=== PATIENT | male | born 1995 | race Caucasian/White ===

== ENCOUNTER 2016-06-10 14:29 | Outpatient (CLI) | payer BC, OTHER ==
[2016-02-28 14:03] VITALS: O2SAT 99
== END 2016-06-10 14:30 | disposition home or self-care (01) | DRG 561 ==
LOC: CONVCARE 14:29
PROVIDERS: ATTEND Orthopaedic Surgery
DX: S62.633D Displaced fracture of distal phalanx of left middle finger, subsequent encounter for fracture with routine healing (principal)
CPT/HCPCS: 73140

== ENCOUNTER 2017-01-15 18:43 | Emergency (ER) | payer OTHER ==
[2017-01-15 19:30] LABS: BASOPHILS % (AUTO) 1 % (0-3); EOSINOPHILS % (AUTO) 1 % (0-9); HEMATOCRIT 44 % (39-53); MEAN CORPUSCULAR HGB CONC 35.8 gm/dl (32.0-36.0); MEAN CORPUSCULAR VOLUME 86 fL (80-100); MONOCYTES % (AUTO) 4.8 % (0-12); NEUTROPHILS % (AUTO) 76.1 % (37-80)
[2017-01-15 19:39] LABS: ALBUMIN 4.7 gm/dl (3.4-5.0); CALCIUM 9.1 mg/dl (8.5-10.1); POTASSIUM 3.4 mMol/L (3.5-5.1)
[2017-01-15 20:10] VITALS: TEMP 100.4
[2017-01-15 21:40] VITALS: BP 123/72; PULSE 61; RESP 24; O2SAT 96
== END 2017-01-15 20:45 | disposition home or self-care (01) ==
LOC: ED 18:43
DX: S06.0X9A Concussion with loss of consciousness of unspecified duration, initial encounter (principal); M79.1 Myalgia; V48.5XXA Car driver injured in noncollision transport accident in traffic accident, initial encounter
CPT/HCPCS: 70450; 72125; 80053; 80307; 85025; 99284; G0390